=== PATIENT | male | born 1960 | race Caucasian/White ===

== ENCOUNTER 2017-09-01 20:46 | Inpatient (IN) ==
[2017-09-01] MEDS ORDERED: *HR* Ticagrelor 90 MG TABLET PO ONE (21:02)
[2017-09-01] MEDS ORDERED: *HR* Heparin 5,000 UNIT/ML VIAL IVP ONE (21:02)
[2017-09-01] MEDS ORDERED: Aspirin 81 MG TAB.CHEW PO ONE (21:02)
--- NOTE | 2017-09-01 21:11 | Emergency Department Note ---
Disposition Clinical Impression: ST elevation myocardial infarction (STEMI) Disposition: Admitted As Inpatient Condition: Serious Time of Disposition: 21:41 Chest Pain HPI - General Chief Complaint: ED Chest Pain Stated Complaint: Chest Pain Time Seen by Provider: 09/01/17 20:58 Source: patient Mode of arrival: ambulatory Limitations: no limitations Vital Signs Reviewed: Yes Nursing Notes Reviewed: Yes - History of Present Illness HPI Narrative: Patient presents to the ED with the chief complaint of chest pain. Onset was acutely at 7 PM while at rest. Has a history of previous IA 7 years ago requiring stent placement. He is only on aspirin daily. States the pain is a heavy pressure in his chest, nonradiating. Associated with diaphoresis and nausea. Denies any fever, headache, shortness of breath, abdominal pain. Having no melena, hematochezia, hemoptysis, or hematuria. Severity scale (1-10): 7 - Related Data Allergies Allergy/AdvReac Type Severity Reaction Status Date / Time No Known Allergies Allergy Verified 09/01/17 20:55 All systems ED: reviewed and negative except as stated. Constitutional: Denies: fever Cardiovascular: Reports: chest pain. Denies: syncope Respiratory: Denies: dyspnea Gastrointestinal: Reports: nausea Chest Pain PMH - Past Medical History Medical history: Reports: hypertension, myocardial infarction Psychiatric history: Reports: no psych history - Social History Smoking Status: Current every day smoker Alcohol use: Reports: none Drug use: Reports: none Physical Exam - General Limitations: no limitations General appearance: alert, other (Diaphoretic, appears uncomfortable) - Eye Eye exam: Present: normal appearance, PERRL, EOMI. Absent: scleral icterus, conjunctival injection - ENT ENT exam: mucous membranes dry - Chest Chest inspection: Present: normal inspection, symmetric chest wall rise - Respiratory Respiratory exam: Present: normal lung sounds bilaterally - Cardiovascular Cardiovascular exam: Present: normal rhythm, tachycardia, normal heart sounds. Absent: regular rate - Abdominal Exam Abdominal exam: Present: soft, Non-Tender. Absent: tenderness, distention, guarding, rebound, rigidity - Extremities Exam Extremities exam: Present: normal inspection, full ROM. Absent: tenderness, pedal edema - Expanded Lower Extremity Exam Hip/Pelvis exam: Present: pelvis stable - Neurological Exam Neurological exam: Present: alert, oriented X3 - Psychiatric Psychiatric exam: Present: normal affect, normal mood - Skin Skin exam: Present: warm, intact, diaphoresis Course - Reevaluation(s) Reevaluation #1: STEMI alert called. Dr. Villegas notified and on his way in. Reevaluation #2: Patient still hypertensive and having pain. We will give nitroglycerin Vital Signs Temperature 97.5 F L 09/01/17 20:51 Pulse Rate 114 09/01/17 20:51 Respiratory Rate 18 09/01/17 20:51 Blood Pressure 182/124 09/01/17 20:51 O2 Sat by Pulse Oximetry 99 09/01/17 20:51 Temperature 97.5 F L 09/01/17 20:51 Pulse Rate 102 09/01/17 21:34 Respiratory Rate 20 09/01/17 21:40 Blood Pressure 175/129 09/01/17 21:40 O2 Sat by Pulse Oximetry 96 09/01/17 21:34 Oxygen Delivery Oxygen Delivery Room Air Chest Pain - Medical Records Medical records reviewed: Yes I reviewed the patient's medical records. - Lab Data Lab results reviewed: Yes I reviewed the patient's lab results. Result diagrams: 09/01/17 21:00 09/01/17 21:00 Lab Results 09/01/17 09/01/17 09/01/17 Range/Units 21:00 21:00 21:00 WBC 14.8 H (4.3-11.1) K/mcL RBC 5.11 (4.19-5.50) M/mcL Hgb 16.4 (12.9-16.9) g/dL Hct 48.3 (37.5-50.1) % MCV 94.5 (83.0-100.0) fL MCH 32.1 (28.0-33.3) pg MCHC 34.0 (31.6-35.5) g/dL RDW 12.1 (11.5-14.5) % Plt Count 324 (140-400) K/mcL MPV 9.4 (9.4-12.4) fL Immature Gran % 0.4 (0-4) % Seg Neutrophils % 75.4 % Lymphocytes % 16.3 % Monocytes % 6.8 % Eosinophils % 0.8 % Basophils % 0.3 % Neutrophils # 11.2 H (1.6-8.9) K/mcL Lymphocytes # 2.4 (0.6-4.6) K/mcL Monocytes # 1.0 (0.0-1.3) K/mcL Eosinophils # 0.1 (0.0-0.6) K/mcL Basophils # 0.0 (0.0-0.2) K/mcL PT (9.4-12.1) Seconds INR APTT (26.0-36.0) Seconds Sodium 133 L (136-145) mEq/L Potassium 4.0 (3.5-5.1) mEq/L Chloride 98 (98-107) mEq/L Carbon Dioxide 28 (23-29) mEq/L BUN 14 (6-20) mg/dL Creatinine 1.32 H (0.70-1.30) mg/dL Est GFR ( Amer) > 60 (> 60) Est GFR (Non-Af Amer) 56 L (> 60) BUN/Creatinine Ratio 11 (6-26) Glucose 429 H (70-105) mg/dL Calculated Osmolality 295 (280-300) Calcium 9.5 (8.6-10.3) mg/dL Magnesium 1.9 (1.6-2.6) mg/dL Troponin I 0.12 H* (< 0.04) ng/mL 09/01/17 Range/Units 21:00 WBC (4.3-11.1) K/mcL RBC (4.19-5.50) M/mcL Hgb (12.9-16.9) g/dL Hct (37.5-50.1) % MCV (83.0-100.0) fL MCH (28.0-33.3) pg MCHC (31.6-35.5) g/dL RDW (11.5-14.5) % Plt Count (140-400) K/mcL MPV (9.4-12.4) fL Immature Gran % (0-4) % Seg Neutrophils % % Lymphocytes % % Monocytes % % Eosinophils % % Basophils % % Neutrophils # (1.6-8.9) K/mcL Lymphocytes # (0.6-4.6) K/mcL Monocytes # (0.0-1.3) K/mcL Eosinophils # (0.0-0.6) K/mcL Basophils # (0.0-0.2) K/mcL PT 9.3 L (9.4-12.1) Seconds INR 0.9 APTT 37.7 H (26.0-36.0) Seconds Sodium (136-145) mEq/L Potassium (3.5-5.1) mEq/L Chloride (98-107) mEq/L Carbon Dioxide (23-29) mEq/L BUN (6-20) mg/dL Creatinine (0.70-1.30) mg/dL Est GFR ( Amer) (> 60) Est GFR (Non-Af Amer) (> 60) BUN/Creatinine Ratio (6-26) Glucose (70-105) mg/dL Calculated Osmolality (280-300) Calcium (8.6-10.3) mg/dL Magnesium (1.6-2.6) mg/dL Troponin I (< 0.04) ng/mL - Radiology Data Radiology results reviewed: Yes I reviewed the patient's radiology results. - EKG Data EKG attestation: Yes I reviewed and interpreted this EKG. EKG results narrative: Sinus tach, rate 106, ID interval 177, QRS 77, QTC 372, anterior septal IA with ST elevation in V1 through V4, but most prominent in V2, V3 and V4. This is similar to morphology (but more pronounced) from previous EKG in 2009. However , this is when he had his last heart attack. Heart Score - Score History: Highly Suspicious EKG: Significant ST-Depression Age: 45-65 Risk Factors: Equal/Greater than 3 risk factor or history of atherosclerotic disease Troponin: Greater than 3x normal limit HEART Score Total: 9 Critical Care Time Critical Care Time: Yes Total Critical Care Time: 30 Attestation: Critical care performed: Time is exclusive of separately billable procedures. Time includes: direct patient care, patient reassessment, coordination of patient care, interpretation of data (laboratory data, radiology data, and respiratory data), review of patient's medical records, medical consultation and documentation of patient care. Procedures included in critical care time: Procedures excluded from critical care time: Attestation Statement - Attestation Attestation: I examined this patient and my medical decision-making was reviewed with the Resident Physician. I agree with the documented findings, disposition and treatment plan as described except to the extent set forth below. Anterior STEMI. Mild tachy, hypertensive, profusely diaphoretic. No sx of abnormal bleeding, CXR shows normal mediastinum. Sent to custodial laborer with cardio.
[2017-09-01 21:14] LABS: Basophils % 0.3 %; Eosinophils # 0.1 K/mcL (0.0-0.6); Eosinophils % 0.8 %; Hematocrit 48.3 % (37.5-50.1); Hemoglobin 16.4 g/dL (12.9-16.9); Immature Granulocytes % 0.4 % (0-4); Lymphocytes # 2.4 K/mcL (0.6-4.6); Lymphocytes % 16.3 %; Mean Corpuscular Hemoglobin 32.1 pg (28.0-33.3); Mean Corpuscular Volume 94.5 fL (83.0-100.0); Mean Platelet Volume 9.4 fL (9.4-12.4); Monocytes % 6.8 %; Neutrophils # 11.2 K/mcL (1.6-8.9); Platelet Count 324 K/mcL (140-400); Red Blood Count 5.11 M/mcL (4.19-5.50); Red Cell Distribution Width 12.1 % (11.5-14.5); Segmented Neutrophils % 75.4 %
[2017-09-01 21:17] LABS: INR 0.9; Prothrombin Time 9.3 Seconds (9.4-12.1)
[2017-09-01 21:20] LABS: Activated Partial Thrombo Time 37.7 Seconds (26.0-36.0)
[2017-09-01] MEDS ORDERED: *HR* Heparin 10,000 UNIT/10 ML VIAL ONE (21:21)
[2017-09-01] MEDS ORDERED: Verapamil 5 MG/2 ML VIAL ONE (21:21)
[2017-09-01] MEDS ORDERED: Nitroglycerin 1,000 MCG/10 ML VIAL IV ONE (21:21)
[2017-09-01] MEDS ORDERED: 0.9 % Sodium Chloride 1,000 ML ONE ×2 (21:21→21:32)
[2017-09-01] MEDS ORDERED: Heparin 1,000 UNITS/500 mL NS 500 ML ONE (21:22)
[2017-09-01 21:24] LABS: BUN/Creatinine Ratio 11 (6-26); Blood Urea Nitrogen 14 mg/dL (6-20); Calcium 9.5 mg/dL (8.6-10.3); Carbon Dioxide 28 mEq/L (23-29); Chloride 98 mEq/L (98-107); Glucose 429 mg/dL (70-105); Magnesium 1.9 mg/dL (1.6-2.6); Osmolality,Calculated 295 (280-300); Sodium 133 mEq/L (136-145); eGFR For African Americans > 60 (> 60); eGFR For Non-African Americans 56 (> 60)
[2017-09-01] MEDS ORDERED: Nitroglycerin 0.4 MG TAB.SUBL SL ONE (21:38)
[2017-09-01] MEDS: Nitroglycerin 0.4 MG TAB.SUBL SL PRN ×2 (21:40→23:01)
--- NOTE | 2017-09-01 21:43 | Pre-Sedation Evaluation ---
Pre-sedation evaluation - Pre-sedation checklist Date of procedure: 09/01/17 Procedure: [facility] Recent Vitals: Last Vital Signs Temp 97.5 F L 09/01/17 20:51 Pulse 102 09/01/17 21:34 Resp 20 09/01/17 21:40 BP 175/129 09/01/17 21:40 Pulse Ox 96 09/01/17 21:34 H&P (including ROS) documented in medical record: Yes Previous reaction to sedatives/anesthetics: No Dietary Status: unknown Airway Assessment: Patient can open mouth completely, TMJ function normal ASA Classification *see protocol: CLASS II-Mild systemic disease, E-EMERGENCY- Add to any of the above to indicate emergent Plan of Care: Pt appropriate candidate for procedure/moderate/conscious sedation , Risks/benefits of procedure/sedation discussed w/ patient/family, If not NPO; Risk of intake outweiged by necessity to perform procedure
[2017-09-01] MEDS ORDERED: *HR* Morphine 2 MG/ML SYRINGE IVP PRN (21:44)
[2017-09-01] MEDS ORDERED: Ondansetron 4 MG/2 ML VIAL IVP PRN (21:44)
--- NOTE | 2017-09-01 21:44 | Cardiology History & Physical ---
Date of Encounter: 09/02/17 Time of Encounter: 22:00 Assessment and Plan (1) ST elevation myocardial infarction (STEMI) Current Visit: Yes Status: Acute Emergent LHC for life threatening illness - A/R/B discussed with patient. EF assessment via echo/ventriculogram. Aspirin, brilinta, heparin given. Total critical care time: 2 hours The assessment and plan as outlined above was discussed with the patient and/or family members who expressed understanding and agreement. All questions were answered. Qualifiers: Involved coronary artery: LAD coronary artery Qualified Code(s): I21.02 - ST elevation (STEMI) myocardial infarction involving left anterior descending coronary artery (2) Nicotine dependence Current Visit: Yes Status: Acute nicotine patch The assessment and plan as outlined above was discussed with the patient and/or family members who expressed understanding and agreement. All questions were answered. Qualifiers: Nicotine product type: cigarettes Substance use status: uncomplicated Qualified Code(s): F17.210 - Nicotine dependence, cigarettes, uncomplicated (3) Acute kidney injury Current Visit: Yes Status: Acute NS IV. The assessment and plan as outlined above was discussed with the patient and/or family members who expressed understanding and agreement. All questions were answered. History of Present Illness Chief complaint: chest pain HPI: Mr. Mosley is a 57 year old male with history of CAD sp PCI RCA remotely presents with sudden onset severe chest discomfort around 7pm described as pressure without radiation associated with dyspnea. It had no improvement with aspirin/ NTG in EMS. Upon arrival to ED, patient found to have anterior acute changes current of injury and STEMI team activated. Past Med Surg Social Fam HX - Past Medical History Medical history: hypertension, myocardial infarction Psychiatric history: no psych history - Social History Smoking Status: Current every day smoker Alcohol use: none Drug use: none Medications and Allergies 3 Allergy/AdvReac Type Severity Reaction Status Date / Time No Known Allergies Allergy Verified 09/01/17 20:55 All Systems Review: A 10-system review of systems was performed and is negative for pertinent findings except as documented above in the HPI. - Constitutional Constitutional: no chills, no fever(s) - EENT Eyes: no blurred vision, no loss of vision Nose, mouth and throat: no dysphagia, no epistaxis - Cardiovascular Cardiovascular: chest pain at rest, chest pain with exertion - Respiratory Respiratory: no hemoptysis, no wheezing - Gastrointestinal Gastrointestinal: no hematemesis, no hematochezia - Genitourinary Genitourinary: no hematuria, no nocturia - Musculoskeletal Musculoskeletal: no abnormal gait, no myalgias - Integumentary Integumentary: no rash, no unusual bruising - Neurological Neurological: no memory loss, no syncope - Psychiatric Psychiatric: no hallucinations, no panic attacks - Hematological/Lymphatic Hematologic/Lymphatic: no easy bleeding, no easy bruising Physical Examination Vital Signs, Last 4 Hours Pulse Resp BP Pulse Ox 09/01/17 21:40 20 175/129 09/01/17 21:34 102 20 173/129 96 09/01/17 21:26 98 20 172/122 97 09/01/17 21:22 98 20 173/124 97 General: Conversant, Other (distressed) HEENT: Atraumatic, Normocephaly Neck: No JVD Cardiac: Reg Rate and Rhythm Lungs: Normal Breath Sounds Neuro: Alert and responsive Abdomen: Soft Skin: No rashes noted on visualized skin Musculoskeletal: No Chest Wall Tenderness Extremities: No Edema Results 09/02/17 04:10 09/01/17 21:00 - EKG Interpretation EKG results cardiology: personally reviewed, sinus rhythm (anterior current of injury)
[2017-09-01] MEDS ORDERED: *HR* Midazolam HCl 2 MG/2 ML VIAL ONE (21:49)
[2017-09-01] MEDS ORDERED: *HR* FentaNYL (PF) 100 MCG/2 ML VIAL ONE (21:50)
[2017-09-01] MEDS ORDERED: Tirofiban 5 MG/100ML 5 MG/100 ML BAG IV ONE (22:01)
[2017-09-01] MEDS ORDERED: *HR* HYDROcodone/Acet 5/325 mg TABLET PO PRN (22:27)
[2017-09-01] MEDS ORDERED: Acetaminophen 325 MG TABLET PO PRN (22:27)
[2017-09-01] MEDS ORDERED: Tirofiban 12.5 MG/250ML 12.5 MG/250 ML BAG IVC SCH (22:30)
--- NOTE | 2017-09-01 22:41 | Invasive Diagnostic Lab Proc ---
Name: Vin Mosley Date of Study: 09/01/2017 Date: 1960 Ht: 76.0in Medical Record#: [id number] Age: 57 Wt: 250.00lb Gender: Male BSA: 2.44 Order #: [id number] BMI: 30.44 Physicians Procedure Physician: Lobito Villegas MD, [facility] Referring MD: Evelina Burnett, HOSPITAL INTERN Referring MD: Staff Name Position Time In Angel Sanchez RN Monitor 09:48 PM Lowell Boyd RN Concert Pianist 09:48 PM Maddy De Leon RT (R) Scrub 09:48 PM Indications Indication STEMI Procedures Performed Procedure PRQ CARD REVASC MN 1 VSL L HRT ARTERY/VENTRICLE ANGIO PRQ CARD KOBE STENT W/ANGIO 1 VSL Pre-Procedure Checklist Informed consent is complete signed and on chart. H&P is on chart. ID band is on and ID verified with patient. Pt not NPO for procedure and MD aware. The procedure was described for the patient and questions were answered. Blood Pressure: 173/129 ECG is on chart. Rhythm: NSR Plan of Care Patient will tolerate the procedure without complications. Adequate level of comfort will be maintained. Hemodynamics will remain stable Patient will recover from procedure without complications. Respiratory function will be maintained. Cardiac rhythm will remain stable. Patient temperature will be maintained. Patient and/or family have verbalized understanding of the procedure. Patient Education Intravenous Access Time IV Size Location DC'd Fluid/Drip Rate Units RN 09:40 PM 18g 1 1/4" Patent On Arrival Rt Antecubital Lowell Boyd RN 09:40 PM 18g 1 1/4" Patent On Arrival Lt Antecubital 0.9NaCl 25 ml/hr Lowell Boyd RN Allergies No Known Allergies Vital Signs Time BP (mmHg) HR (bpm) O2 Sat. RR (bpm) LOC 09:39 PM 173 / 129 98 97 % 20 5 = Fully awake and oriented or at pre-proc level 09:50 PM / % 5 = Fully awake and oriented or at pre-proc level 09:50 PM / % 4 = Oriented but drowsy 10:05 PM / % 4 = Oriented but drowsy 09:47 PM 181 / 127 102 96 % 19 09:52 PM 177 / 128 97 95 % 11 09:57 PM 169 / 122 100 84 % 17 10:02 PM 159 / 108 100 97 % 25 10:07 PM 167 / 108 93 97 % 27 10:12 PM 139 / 95 103 97 % 16 10:16 PM 153 / 99 99 96 % 25 10:22 PM 154 / 104 99 94 % 28 Procedural Medications Time Medication Dose Units Method Given By 09:49 PM Oxygen 3 L/min nasal cannula Lowell Boyd RN 09:50 PM Versed 2 mg Intravenous Lowell Boyd RN 09:50 PM Fentanyl 50 mcg Intravenous Lowell Boyd RN 09:50 PM Lidocaine 2% 0.5 ml Subcutaneous Lobito Villegas MD, FACC 09:54 PM Hydralazine 20 mg Intravenous Lowell Boyd RN 09:57 PM Oxygen 8 L/min Oxy Mask Lowell Boyd RN 10:04 PM Aggrastat Bolus: 58 ml Intravenous Lowell Boyd RN 10:06 PM Aggrastat 5mg/100ml 21 ml/hr Intravenous Lowell Boyd RN ASA Classification: CLASS II- Mild systemic disease (i.e. well-controlled diabetes, hypertension, asthma, cigarette smoking) Emergent Procedure: ASA score is assumed Krystal Score Preprocedure Postprocedure Activity 2- Moves 4 extremities sustained head lift Activity Circulation 2- SBP +/= 20 points of pre-anesthetic level Circulation Consciousness 2- Awake and alert oriented x 3 Consciousness O2 Saturation 2- Able to maintain O2 satruation of 92% on room air O2 Saturation Respiratory 2- Able to deep breathe and cough well Respiratory Total Score 10 Total Score Contrast Agent: Isovue Diagnostic Contrast: 160 ml Total Contrast: 160 ml Fluoro Dose: 734 mGy Procedure Log Time Note Enter By 09:15 PM chest pain 'a little bit better ' per patient csmith 09:42 PM Pt arrived to laboratory technician 2 at 21:42 8/10 chest pain at this time csmith 09:46 PM CathStat 09:46 PM Vitals capture started with the following parameters, Patient=Adult, Interval=5 min, Initial Vsfflell=622 mmHg, Deflation Rate=5 mmHg, Cuff placed on Right Leg 09:47 PM KR=905 bpm, RZWE=430/127 mmhg, SpO2=96.0 %, Resp=19 B/min 09:48 PM Angel Sanchez RN Position: Monitor Time in: 21:48 csmith 09:48 PM Lowell Boyd RN Position: Concert Pianist Time in: 21:48 csmith 09:48 PM Maddy De Leon RT (R) Position: Scrub Time in: 21:48 csmith 09:48 PM Patient charges- Angio tray pack, Navilyst 3mm J, Pulse Oximetry and ACIST tubing and transducer csmith 09:49 PM Hair removed from procedure site in procedure lab using clippers. Right wrist and right groin prepped with Chloraprep by Angel Sanchez RN, safety strap applied then patient was draped. Skin intact. csmith :49 PM Physician arrived :49 csmith :49 PM Meet and greet completed csmith :49 PM Sign in performed according to hospital policy. csmith 09:49 PM Procedure start :49 csmith :49 PM Time: 21:49 Oxygen on at 3 L/min per nasal cannula by Lowell Boyd RN csmith 09:49 PM Case Start 09:50 PM Pressure channel 1 zeroed. 09:50 PM Time: 21:50 Versed 2 mg Intravenous Given by Lowell Boyd RN [facility] 09:50 PM Time: 21:50 Fentanyl 50 mcg Intravenous Given by Lowell Boyd RN [facility] 09:50 PM Time: 21:50 Patient comfortable and pain free: no csmith 09:50 PM Time: 21:50LOC: 5 = Fully awake and oriented or at pre-proc level csmith 09:50 PM Time out performed according to hospital policy csmith 09:50 PM Time: 21:50 0.5 ml Lidocaine 2% to right radial Subcutaneous Given by Lobito Villegas MD, [facility] csmith 09:51 PM Pressure channel 1 zero failed. 09:52 PM Pressure channel 1 zeroed. 09:52 PM HR=97 bpm, HPBZ=304/128 mmhg, SpO2=95.0 %, Resp=11 B/min 09:52 PM Access obtained by percutaneous puncture. 5/6Fr 10cm Terumo Glidesheath sheath placed in right Radial artery. [id number] csmith 09:54 PM 0.035 260cm Navilyst 3mmJ wire [id number] [facility] 09:54 PM 6Fr CLS 3.0 Runway guide catheter was used to cannulate the PCI vessel successfully. reused? No csmith :54 PM Time: 21:54 Hydralazine 20 mg Intravenous Given by Lowell Boyd RN csmith 09:56 PM wire removed csmith 09:56 PM .014 [place] 180cm guide wire across target lesion- successful. reused? No csmith 09:57 PM AE=512 bpm, FQFM=956/122 mmhg, SpO2=84.0 %, Resp=17 B/min, Comment=ST 09:57 PM Time: 21:57 Oxygen on at 8 L/min per Oxy Mask by Lowell Boyd RN csmith 09:58 PM PCI lesion in Mid LAD. Pre Stenosis: 99 Pre DAVIDA Flow: 2: Partial Flow/Perfusion (> 1 but < 3) csmith 09:59 PM 3.0mm x 16mm Synergy drug-eluting stent across target lesion- successful Lot #[id number] csmith 10:00 PM Patient moving arms sporadically csmith 10:00 PM Stent deployed @ 16 meenu for 23 seconds csmith 10:01 PM Recorded Pressure: Ao, HR=95, Condition=Condition 1 (Aorta) Ao 139/100/120 10:02 PM HJ=343 bpm, PXZX=307/108 mmhg, SpO2=97.0 %, Resp=25 B/min, Comment=st 10:04 PM Stent delivery system removed intact. csmith 10:04 PM Catheter selectively placed in left ventricle csmith 10:04 PM Pressure channel 1 zeroed. 10:04 PM Recorded Pressure: LV, HR=99, Condition=Condition 1 (Left Ventricle) LV 173/20/37 10:04 PM Bolus angiogram of left Ventricle complete: 10 ml/sec for a total of 20 mls csmith 10:05 PM Catheter removed csmith 10:05 PM Recorded Pressure: LV, Ao, HR=98, Condition=Condition 1 (Left Ventricle) LV 168/22/36, (Aorta) Ao 164/108/134 10:05 PM Time: 21:50LOC: 4 = Oriented but drowsy csmith 10:05 PM Time: 21:50 Patient comfortable and pain free: Yes csmith 10:06 PM 5Fr TIG catheter inserted over the wire DNC csmith 10:06 PM Time: 22:04 Aggrastat Bolus: 58 ml Intravenous Given by Lowell Boyd RN Seth pump csmith 10:06 PM Time: 22:06 Aggrastat 5mg/100ml 21 ml/hr Intravenous Given by Lowell Boyd RN Seth pump csmith 10:07 PM Recorded Pressure: Ao, HR=96, Condition=Condition 1 (Aorta) Ao 146/114/129 10:07 PM HR=93 bpm, JENV=249/108 mmhg, SpO2=97 %, Resp=27 B/min 10:07 PM RCA angiography performed in multiple views. csmith 10:07 PM Coronary Dominance: right csmith 10:08 PM no pain change at this time csmith 10:09 PM Catheter removed csmith 10:09 PM 6Fr Im Runway guide catheter was used to cannulate the PCI vessel successfully. reused? No csmith 10:10 PM marvel wire reinserted csmith 10:11 PM 3.5mm x 12mm Synergy drug-eluting stent across target lesion- successful Lot #[id number] csmith 10:12 PM Lesion found in Distal RCA. Pre Stenosis: 99 Pre DAVIDA Flow: 2: Partial Flow/Perfusion (> 1 but < 3) csmith 10:12 PM UT=782 bpm, MXJS=128/95 mmhg, SpO2=97.0 %, Resp=16 B/min, Comment=st 10:12 PM Stent deployed @ 14 meenu for 18 seconds csmith 10:13 PM Lesion found in Mid Circumflex. Pre Stenosis: 40 Pre DAVIDA Flow: 3: Complete and Brisk Flow/Perfusion csmith 10:14 PM Stent balloon reinflated @ 16 meenu for 25 seconds csmith 10:14 PM Lesion found in Mid RCA. Pre Stenosis: 65 Pre DAVIDA Flow: 3: Complete and Brisk Flow/Perfusion csmith 10:15 PM guide catheter and wire removed csmith 10:15 PM TIG reinserted csmith 10:16 PM HR=99 bpm, IKXR=917/99 mmhg, SpO2=96.0 %, Resp=25 B/min 10:17 PM LCA angiography performed in multiple views. csmith 10:19 PM catheter removed csmith 10:21 PM Time: 22:05LOC: 4 = Oriented but drowsy csmith 10:22 PM HR=99 bpm, GQNV=940/104 mmhg, SpO2=94.0 %, Resp=28 B/min 10:22 PM Procedure completed at 22:22 csmith 10:22 PM Sign out completed: Radiation Dose 734 mGy Fluoro Time: 6.2 Isovue 370 - 200ml contrast 160 ml given by Lobito Villegas MD, FACC. Complications: NoneCardiac Rehab Consult needed: YesConfirmed administered medications: Yes csmith 10:23 PM Isovue 370 - 200ml,1 Bottle(s) used. csmith 10:23 PM Arterial sheath pulled, Vasc Band closure device used and was Successful S/N. csmith 10:23 PM 12 ml air in Vasc Band. csmith 10:23 PM Estimated Blood Loss: less than 20cc csmith 10:23 PM Post ECG NSR csmith 10:23 PM Post Blood Pressure 154/104 csmith 10:23 PM 22:23 Post Pulses Right radial 1+ csmith 10:23 PM Information taught Cardiac Cath, PCI, and Vasc Band csmith 10:23 PM Education needs Responsibilities of Patient in Care csmith 10:23 PM Education Methods Verbal csmith 10:23 PM Learning barriers :Sedated csmith 10:23 PM Education evaluation Unable to retain information. Needs further instruction csmith 10:24 PM Site status No bleeding/hematoma - Rt Wrist as reported by Maddy De Leon RT (R) at 22:23 csmith 10:24 PM Plavix, Effient or Brilinta given No - given in ED csmith 10:24 PM Family placed in consult room. [facility] Complications Complication None Hemodynamics Pressures Site Systolic/A Wave Diastolic/V Wave Mean AO 139 100 120 LV 173 20 37 LV 168 22 36 AO 164 108 134 AO 146 114 129 Post Procedure Information Blood Pressure: 154/104 mmHg Rhythm: NSR Post procedural instructions were given Closure Device Time Device Success/Fail Mechanical Compression Site Checks Time Location Status Staff Sheath In? Note 10:23 PM Rt Wrist No bleeding/hematoma Maddy De Leon RT (R) Pulses Time Site Pre-Procedure Post-Procedure Note 10:23:00 PM Right radial 1+ Updated by Angel Sanchez RN on 09/01/2017 10:34:00 PM electronically signed on 09/01/2017 10:34:59 PM with status of Final
[2017-09-01] MEDS: 0.9 % Sodium Chloride 1,000 ML IVC SCH (23:01)
[2017-09-02] MEDS ORDERED: *HR* Dextrose 50 % in Water (Syg) 50 ML SYRINGE IVP PRN ×2 (00:44→12:33)
[2017-09-02] MEDS ORDERED: Dextrose Gel 15 GM PO PRN ×4 (00:44→12:33)
[2017-09-02] MEDS ORDERED: D5% in Water 1,000 ML IVC PRN ×2 (00:44→12:33)
[2017-09-02] MEDS ORDERED: Insulin LISPRO 300 UNITS/3 ML VIAL SQ SCH ×2 (00:45→21:00)
[2017-09-02 04:42] LABS: Basophils % 0.2 %; Eosinophils % 0.1 %; Hematocrit 47.5 % (37.5-50.1); Hemoglobin 16.2 g/dL (12.9-16.9); Immature Granulocytes % 0.7 % (0-4); Lymphocytes # 1.9 K/mcL (0.6-4.6); Mean Corpuscular HGB Conc 34.1 g/dL (31.6-35.5); Mean Corpuscular Hemoglobin 31.5 pg (28.0-33.3); Mean Corpuscular Volume 92.2 fL (83.0-100.0); Mean Platelet Volume 9.3 fL (9.4-12.4); Monocytes # 1.1 K/mcL (0.0-1.3); Monocytes % 8.5 %; Neutrophils # 10.2 K/mcL (1.6-8.9); Platelet Count 309 K/mcL (140-400); Red Blood Count 5.15 M/mcL (4.19-5.50); Red Cell Distribution Width 12.3 % (11.5-14.5); Segmented Neutrophils % 76.5 %
[2017-09-02 04:53] LABS: Hemoglobin A1C 10.5 %
[2017-09-02] MEDS ORDERED: *HR* Enoxaparin 40 MG/0.4 ML SYRINGE SQ SCH (06:00)
[2017-09-02] MEDS: Insulin LISPRO 300 UNITS/3 ML VIAL SQ SCH ×3 (07:39→16:26)
[2017-09-02] MEDS: 0.9 % Sodium Chloride 1,000 ML IVC SCH ×3 (07:40→19:30)
[2017-09-02] MEDS ORDERED: Aspirin 81 MG TAB.CHEW PO SCH (09:00)
[2017-09-02] MEDS ORDERED: *HR* Ticagrelor 90 MG TABLET PO SCH (09:00)
[2017-09-02] MEDS ORDERED: Nicotine 21 MG PATCH.TD24 TD SCH (09:00)
[2017-09-02 09:10] LABS: BUN/Creatinine Ratio 14 (6-26); Blood Urea Nitrogen 12 mg/dL (6-20); Calcium 9.3 mg/dL (8.6-10.3); Carbon Dioxide 19 mEq/L (23-29); Chloride 106 mEq/L (98-107); Glucose 214 mg/dL (70-105); Osmolality,Calculated 288 (280-300); Potassium 3.8 mEq/L (3.5-5.1); Sodium 136 mEq/L (136-145); eGFR For African Americans > 60 (> 60); eGFR For Non-African Americans > 60 (> 60)
--- NOTE | 2017-09-02 09:47 | Cardiology Progress Note ---
Date of Encounter: 09/02/17 Time of Encounter: 09:46 Assessment and Plan (1) ST elevation myocardial infarction (STEMI) Current Visit: Yes Status: Acute S/P emergent LHC with KOBE to mid LAD and distal RCA. DAPT (ASA and Brilinta) uninterrupted x 1 year. Pt verbalizes understanding. Continue BB and statin. Right radial access site healing well. No bleeding, hematoma or ecchymosis noted. Echo to evaluate structure and function. Plan to step down to regular floor later today. Qualifiers: Involved coronary artery: LAD coronary artery Qualified Code(s): I21.02 - ST elevation (STEMI) myocardial infarction involving left anterior descending coronary artery (2) CAD (coronary artery disease) Current Visit: Yes Status: Acute ASA, Brilinta, BB, Statin. Qualifiers: Coronary Disease-Associated Artery/Lesion type: [place] artery [place] vs. transplanted heart: [place] heart Associated angina: angina presence unspecified Qualified Code(s): I25.10 - Atherosclerotic heart disease of [place] coronary artery without angina pectoris (3) Nicotine dependence Current Visit: Yes Status: Acute Smoking cessation counseling given. Nicotine patch while inpt. Qualifiers: Nicotine product type: cigarettes Substance use status: uncomplicated Qualified Code(s): F17.210 - Nicotine dependence, cigarettes, uncomplicated (4) Essential hypertension Current Visit: Yes Status: Acute BP not well controlled. Increase BB. Will continue to adjust antihypertensives as necessary. Discussion w patient/family: The assessment and plan as outlined above was discussed with the patient and/or family members who expressed understanding and agreement. All questions were answered. Thank you for involving us in the care of your patient. Please call with any questions. I will discuss all the above with Dr. Garcia and make changes as necessary. Subjective Principal diagnosis: STEMI Interval history: S/P STEMI last night, emergent LHC with KOBE to mid LAD and distal RCA--final report pending. Denies chest pain or dyspnea this AM. Only complaint is nasal drainage. Objective Vital Signs, Last 4 Hours Temp Pulse Resp BP Pulse Ox 09/02/17 09:00 84 18 145/106 95 09/02/17 08:33 97.8 F 09/02/17 08:00 85 18 136/99 98 09/02/17 07:30 80 09/02/17 07:00 80 18 142/106 98 09/02/17 06:00 91 18 149/114 97 Vital Signs Temp Pulse Resp BP Pulse Ox 09/02/17 09:00 84 18 145/106 95 09/02/17 08:33 97.8 F 09/02/17 08:00 85 18 136/99 98 09/02/17 07:30 80 09/02/17 07:00 80 18 142/106 98 09/02/17 06:00 91 18 149/114 97 09/02/17 05:00 90 18 147/100 97 09/02/17 04:53 97.8 F 09/02/17 04:00 89 18 154/118 97 09/02/17 03:00 107 20 170/104 99 09/02/17 02:00 94 20 150/116 97 09/02/17 01:00 103 22 163/111 98 09/02/17 00:45 81 18 151/111 98 09/02/17 00:30 83 20 149/116 98 09/02/17 00:15 89 20 158/108 98 09/02/17 00:00 89 20 154/102 98 09/01/17 23:45 81 18 141/114 98 09/01/17 23:31 95 22 148/93 97 09/01/17 23:20 99 09/01/17 23:15 99 22 140/91 96 09/01/17 23:02 97 F L 101 22 141/93 97 09/01/17 22:38 97 F L 107 12 146/93 94 09/01/17 21:40 20 175/129 09/01/17 21:34 102 20 173/129 96 09/01/17 21:26 98 20 172/122 97 09/01/17 21:22 98 20 173/124 97 09/01/17 21:17 99 20 177/127 97 09/01/17 21:09 176/124 09/01/17 21:03 104 20 97 09/01/17 20:51 97.5 F L 114 18 182/124 99 Intake and Output 09/01/17 09/02/17 09/02/17 23:59 07:59 15:59 Intake Total 1080 / 1080 400 / 400 Output Total 500 / 500 1475 / 1475 400 / 400 Balance -500 / -500 -395 / -395 0 / 0 Intake: IV Fluids 1080 / 1080 0.9 % Sodium Chloride 1,000 ML 1000 / 1000 @ 100 mls/hr IVC .Q10H LETI Rx#: [id number] Aggrastat 12.5 MG/250 ML 12.5 80 / 80 mg In 250 ml @ 0.15 MCG/KG/MIN 20.412 mls/hr IVC .[id number] LETI Rx#:[id number] Oral 400 / 400 Output: Urine 500 / 500 1475 / 1475 400 / 400 Other: Weight 113.398 kg Blood Glucose* 284 259 General: Conversant, No Apparent Distress HEENT: Atraumatic, Normocephaly, Mucus Membranes Moist Neck: No JVD, Normal carotid pulses Cardiac: Reg Rate and Rhythm, Normal S1 and S2, No Murmur Lungs: Normal Breath Sounds, No Wheeze, Rales, Rhonchi Neuro: Alert and responsive, No focal deficits noted Abdomen: Soft, Non-Tender Skin: Other (right radial access site healing well. No bleeding, hematoma or ecchymosis noted.) Musculoskeletal: No Chest Wall Tenderness Extremities: No Clubbing, No Cyanosis, No Edema, Normal Pulses Results 09/02/17 04:10 09/02/17 04:10 Lab Results 09/02/17 09/02/17 04:10 04:10 WBC 13.4 H Hgb 16.2 Hct 47.5 Plt Count 309 Sodium 136 Potassium 3.8 Chloride 106 Carbon Dioxide 19 L BUN 12 Creatinine 0.88 Glucose 214 H Calcium 9.3 Short CBC 09/02/17 09/01/17 Range/Units 04:10 21:00 WBC 13.4 H 14.8 H (4.3-11.1) K/mcL Hgb 16.2 16.4 (12.9-16.9) g/dL Hct 47.5 48.3 (37.5-50.1) % Plt Count 309 324 (140-400) K/mcL Neutrophils # 10.2 H 11.2 H (1.6-8.9) K/mcL BMP 09/02/17 09/01/17 Range/Units 04:10 21:00 Sodium 136 133 L (136-145) mEq/L Potassium 3.8 4.0 (3.5-5.1) mEq/L Chloride 106 98 (98-107) mEq/L Carbon Dioxide 19 L 28 (23-29) mEq/L BUN 12 14 (6-20) mg/dL Creatinine 0.88 1.32 H (0.70-1.30) mg/dL Glucose 214 H 429 H (70-105) mg/dL Calcium 9.3 9.5 (8.6-10.3) mg/dL Cardiac Enzymes 09/01/17 Range/Units 21:00 Troponin I 0.12 H* (< 0.04) ng/mL Impressions Chest X-Ray 09/01/17 20:57 IMPRESSION: Question patchy airspace disease in the mid to lower lungs, raising the possibly of pneumonia and/or bronchopneumonia (especially given the bronchial wall thickening). However, that is not certain to, especially given the normal definition of the heart and diaphragmatic borders. D/ / Jorge Reyes MD / Jorge Reyes MD Interpreting Provider: Jorge Reyes MD Active Medications Acetaminophen (Tylenol) 650 mg PO Q6HR PRN PRN Reason: Mild Pain Stop: 03/03/18 22:28 Hydrocodone Bitart/Acetaminophen ([place] 5-325 Mg) 1 tab PO Q4HR PRN PRN Reason: Moderate Pain Stop: 03/03/18 22:28 Aspirin (Aspirin) 81 mg PO DAILY LETI Stop: 03/04/18 09:01 Last Admin: 09/02/17 07:38 Dose: 81 mg Dextrose/Water (Dextrose 50% (Syg)) 25 ml IVP AD PRN PRN Reason: Hypoglycemia Stop: 03/04/18 00:45 Diphenhydramine HCl (Benadryl) 25 mg PO HS PRN PRN Reason: Insomnia Stop: 03/03/18 22:29 Enoxaparin Sodium (Lovenox) 40 mg SQ 0600 LETI PRN Reason: Protocol Stop: 03/04/18 06:01 Last Admin: 09/02/17 06:14 Dose: 40 mg Glucagon (Glucagen) 1 mg IM ONCE PRN PRN Reason: Hypoglycemia Stop: 03/04/18 00:45 Glucose (Gluctose) 15 gm PO ONCE PRN PRN Reason: Hypoglycemia Stop: 03/04/18 00:45 Glucose (Gluctose) 30 gm PO ONCE PRN PRN Reason: Hypoglycemia Stop: 03/04/18 00:45 Hydralazine HCl (Hydralazine) 20 mg IVP Q6HR PRN PRN Reason: Hypertension Stop: 03/03/18 22:30 Last Admin: 09/02/17 09:05 Dose: 20 mg Sodium Chloride (0.9 % Sodium Chloride) 1,000 mls @ 100 mls/hr IVC .Q10H LETI Stop: 03/03/18 22:31 Last Admin: 09/02/17 07:40 Dose: Not Given Dextrose (Dextrose 5%) 1,000 mls @ 100 mls/hr IVC .Q10H PRN PRN Reason: HYPOGLYCEMIA Stop: 03/04/18 00:45 Insulin Human Lispro (Humalog) 0 units SQ HS [facility] PRN Reason: Protocol Stop: 03/04/18 00:46 Last Admin: 09/02/17 01:13 Dose: 4 units Insulin Human Lispro (Humalog) 0 units SQ TIDAC [facility] PRN Reason: Protocol Stop: 03/04/18 07:31 Last Admin: 09/02/17 07:39 Dose: 6 units Metoprolol Tartrate (Lopressor) 25 mg PO BID [facility] Stop: 03/04/18 03:31 Last Admin: 09/02/17 04:42 Dose: Not Given Morphine Sulfate (Morphine Sulfate) 4 mg IVP Q3H PRN PRN Reason: Severe Pain (7-10) Stop: 03/03/18 21:45 Nicotine (Nicoderm) 21 mg TD DAILY [facility] PRN Reason: Protocol Stop: 03/04/18 09:01 Last Admin: 09/02/17 07:41 Dose: Not Given Nitroglycerin (Nitroglycerin) 0.4 mg SL Q5MIN PRN PRN Reason: Chest Pain Stop: 03/03/18 21:39 Last Admin: 09/01/17 23:01 Dose: 0.4 mg Ondansetron HCl (Zofran) 4 mg IVP Q8HR PRN PRN Reason: Nausea And Vomiting Stop: 03/03/18 21:45 Rosuvastatin Calcium (Crestor) 40 mg PO HS [facility] Stop: 03/04/18 21:01 Ticagrelor (Brilinta) 90 mg PO BID [facility] Stop: 03/04/18 09:01 Last Admin: 09/02/17 07:39 Dose: 90 mg - Imaging and Cardiology Echo: pending Consult Discharge Plan - Plan Referrals: Dev Cordero [Primary Care Provider] -
[2017-09-02] MEDS ORDERED: *HR* Morphine 2 MG/ML SYRINGE IVP PRN (12:33)
[2017-09-02] MEDS ORDERED: *HR* HYDROcodone/Acet 5/325 mg TABLET PO PRN (12:33)
[2017-09-02] MEDS ORDERED: Nitroglycerin 0.4 MG TAB.SUBL SL PRN (12:33)
[2017-09-02] MEDS ORDERED: Ondansetron 4 MG/2 ML VIAL IVP PRN (12:33)
[2017-09-02] MEDS ORDERED: Acetaminophen 325 MG TABLET PO PRN (12:33)
[2017-09-02] MEDS ORDERED: Perflutren Lipid Microsphere 1.3 ML in 0.9 % Sodium Chloride 8.7 ML IVP ONE (14:22)
--- NOTE | 2017-09-02 18:28 | Electrocardiograph Report ---
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
--- NOTE | 2017-09-02 18:29 | Electrocardiograph Report ---
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
[2017-09-02] MEDS: *HR* Ticagrelor 90 MG TABLET PO SCH (19:26)
[2017-09-03] MEDS ORDERED: *HR* Enoxaparin 40 MG/0.4 ML SYRINGE SQ SCH (06:00)
[2017-09-03] MEDS: Insulin LISPRO 300 UNITS/3 ML VIAL SQ SCH (07:31)
[2017-09-03] MEDS: 0.9 % Sodium Chloride 1,000 ML IVC SCH (07:33)
[2017-09-03] MEDS: *HR* Ticagrelor 90 MG TABLET PO SCH (07:45)
[2017-09-03] MEDS ORDERED: Aspirin 81 MG TAB.CHEW PO SCH (09:00)
[2017-09-03] MEDS ORDERED: Nicotine 21 MG PATCH.TD24 TD SCH (09:00)
[2017-09-03 09:13] VITALS: BP 107/81
[2017-09-03 09:26] LABS: Basophils % 0.2 %; Eosinophils % 0.3 %; Hematocrit 49.2 % (37.5-50.1); Hemoglobin 16.4 g/dL (12.9-16.9); Immature Granulocytes % 0.4 % (0-4); Lymphocytes # 1.8 K/mcL (0.6-4.6); Lymphocytes % 15.7 %; Mean Corpuscular HGB Conc 33.3 g/dL (31.6-35.5); Mean Corpuscular Hemoglobin 31.4 pg (28.0-33.3); Mean Corpuscular Volume 94.3 fL (83.0-100.0); Mean Platelet Volume 9.4 fL (9.4-12.4); Monocytes % 8.3 %; Neutrophils # 8.7 K/mcL (1.6-8.9); Platelet Count 329 K/mcL (140-400); Red Blood Count 5.22 M/mcL (4.19-5.50); Red Cell Distribution Width 12.6 % (11.5-14.5); Segmented Neutrophils % 75.1 %
[2017-09-03 09:38] LABS: BUN/Creatinine Ratio 20 (6-26); Blood Urea Nitrogen 19 mg/dL (6-20); Calcium 9.3 mg/dL (8.6-10.3); Carbon Dioxide 27 mEq/L (23-29); Chloride 103 mEq/L (98-107); Glucose 342 mg/dL (70-105); Osmolality,Calculated 294 (280-300); Potassium 4.1 mEq/L (3.5-5.1); Sodium 134 mEq/L (136-145); eGFR For African Americans > 60 (> 60); eGFR For Non-African Americans > 60 (> 60)
--- NOTE | 2017-09-03 10:00 | Discharge Summary ---
Date of Encounter: 09/03/17 Time of Encounter: 09:55 - Discharge Diagnosis (1) ST elevation myocardial infarction (STEMI) Priority: Primary Status: Acute Qualifiers: Involved coronary artery: LAD coronary artery Qualified Code(s): I21.02 - ST elevation (STEMI) myocardial infarction involving left anterior descending coronary artery (2) CAD (coronary artery disease) Priority: Primary Status: Acute Qualifiers: Coronary Disease-Associated Artery/Lesion type: [place] artery [place] vs. transplanted heart: [place] heart Associated angina: angina presence unspecified Qualified Code(s): I25.10 - Atherosclerotic heart disease of [place] coronary artery without angina pectoris (3) Nicotine dependence Priority: Secondary Status: Acute Qualifiers: Nicotine product type: cigarettes Substance use status: uncomplicated Qualified Code(s): F17.210 - Nicotine dependence, cigarettes, uncomplicated (4) Essential hypertension Priority: Secondary Status: Acute (5) Ischemic cardiomyopathy Priority: Secondary Status: Acute (6) Type 2 diabetes mellitus Priority: Secondary Status: Acute Qualifiers: Diabetes mellitus complication status: with unspecified complications Diabetes mellitus intermission coordinator insulin use: without halfway use Qualified Code( s): E11.8 - Type 2 diabetes mellitus with unspecified complications - Discharge Medications Prescriptions: Nitroglycerin 0.4 mg SL Q5MIN PRN #30 tab.subl PRN Reason: Chest Pain Aspirin [Lo-Dose Aspirin EC] 81 mg PO DAILY #30 tablet. Lisinopril 2.5 mg PO DAILY #30 tablet metFORMIN [Glucophage] 500 mg PO BIDWM #60 tablet Metoprolol XL (24 HR) Succ [Toprol XL] 50 mg PO DAILY #30 tab.er.24h Nicotine Patch [Nicoderm] 21 mg TD DAILY #28 patch.td24 Rosuvastatin [Crestor] 40 mg PO HS #30 tablet Ticagrelor [Brilinta] 90 mg PO BID #60 tablet Home Medications: Aspirin [Lo-Dose Aspirin EC] 81 mg PO DAILY #30 tablet. 09/03/17 [Rx] Lisinopril 2.5 mg PO DAILY #30 tablet 09/03/17 [Rx] Metoprolol XL (24 HR) Succ [Toprol XL] 50 mg PO DAILY #30 tab.er.24h 09/03/17 [ Rx] Nicotine Patch [Nicoderm] 21 mg TD DAILY #28 patch.td24 09/03/17 [Rx] Nitroglycerin 0.4 mg SL Q5MIN PRN #30 tab.subl 09/03/17 [Rx] Rosuvastatin [Crestor] 40 mg PO HS #30 tablet 09/03/17 [Rx] Ticagrelor [Brilinta] 90 mg PO BID #60 tablet 09/03/17 [Rx] metFORMIN [Glucophage] 500 mg PO BIDWM #60 tablet 09/03/17 [Rx] Allergies/Adverse Reactions: 3 Allergy/AdvReac Type Severity Reaction Status Date / Time No Known Allergies Allergy Verified 09/01/17 20:55 Procedures/tests Complete & Pending: Procedures Performed prior 72 hours Category Date Time Status ECG 12 lead ECG [ECG] Routine Y 09/02/17 07:00 Ordered ECG 12 lead ECG [ECG] Stat Y 09/01/17 21:44 Completed EV echocardiogram w enhance Routine Y 09/01/17 21:44 Completed Date of admission: 09/01/17 21:18 Primary care physician: Gale Provider Consults: 09/01/17 21:44 Consult to Cardiac Rehabilitation-Phase1 [CONS] Routine Comment: Reason for Consult: AMI Call Completed: Yes Consult to Nurse Navigator [CONS] Routine Comment: Discharging clinician: Stephen Correa Anticipated date of discharge: 09/03/17 - Patient Status Disposition: Home, Self-Care Condition: Fair Overall status at discharge: patient is progressing back to baseline - Discharge Instructions Follow Up With: Dev Cordero [Primary Care Provider] - Additional Instructions: RISK FACTORS: STOP SMOKING: If you smoke, STOP. Smoking or tobacco use significantly increases your risk of heart disease because nicotine causes the arteries to narrow or constrict. It also causes fats to stick to the artery. Your chances of having a heart attack are greatly increased if you continue to smoke. For more information, call the education line for smoking cessation 0-050-[id number] EAT A LOW FAT/CHOLESTEROL/SODIUM DIET: This diet may help reduce your chances of having a heart attack. LIFTING: With affected extremity: Avoid bending, pushing off and lifting more than 2 pounds for 24 hours The following 48 hours, avoid lifting anything more than 5 pounds Avoid strenuous activity or repetitive motions ACTIVITY: You may walk or climb stairs as tolerated You can resume sexual activity as tolerated In general, you are encouraged to engage in a minimum of 30 minutes or more of moderate intensity physical activity, such as brisk walking, daily or at least 3 -4 times weekly BATHING Do not submerge the site into water (bath tub, hot tub, swimming pool, dishes) for 1 week. This can be a source for infection into the blood stream. You may shower after 24 hours SITE CARE: After 24 hours, you may remove the dressing and leave the site open to air. Keep the site clean and dry. Clean gently and pat dry. You can expect bruising and tenderness that gradually resolve within a week or two. Return to work as instructed per your physician Resume driving as instructed per physician Keep all scheduled follow up appointments Resume medications as instructed IMPORTANT: If prescribed a Platelet Aggregation Inhibitor such as, Plavix, Brilinta or Effient: Duration of therapy is minimum one year These medications are often used in combination with Aspirin in prevention of future heart attacks Never discontinue unless consult with your Assistant Facility Manager STROKE (CVA) Risk factors for a stroke are: Age, cigarette smoking, diabetes, excessive alcohol consumption, family history, high blood pressure, overweight, physical inactivity, prior stroke, heart attack, diagnosis of carotid artery stenosis or other artery disease. Warning signs: Sudden numbness or weakness of the face, arm or leg; especially on one side of the body, sudden confusion, trouble speaking or understanding, sudden trouble seeing in one or both eyes, sudden trouble walking, dizziness, loss of balance or coordination, sudden severe headache with no cause. Call 911 or go to the Emergency Room. CONGESTIVE HEART FAILURE: If you have been diagnosed with Congestive Heart Failure (CHF) and your symptoms return, make an appointment with your physician Weigh yourself daily. Notify your physician if you have a weight gain of two or more pounds in one day or five or more pounds in one week. If you experience any difficulty breathing, please call 911 BLEEDING: Although the risk of bleeding is minimal, it can happen. If you have any bleeding from the site, apply firm pressure above the puncture site for 10-15 minutes. If the bleeding does not stop, continue manual pressure and call 911 Contact [facility] ( ) if: You develop a fever greater than 101 degrees Fahrenheit Your site becomes reddened or has any drainage You have an increase in pain or burning at the site or if a large knot forms at the site. If you experience chest pain, shortness of breath, dizziness, or extreme tiredness, stop the activity and rest. Please notify [facility] office if you experience any of these symptoms and they are not relieved by rest please call 911! - Diet and Activity Activity: increase activity as tolerated Diet: low fat, low cholesterol, low salt diet - Hospital Course Hospital course: Mr. Mosley is a 57 year old male that presented as a STEMI on 09/01/17, underwent emergent LHC--severe two vessel coronary artery disease, EF 50%. Patient had successful PTCA/Drug-Eluting Stent placement in the distal RCA (critical stenosis with ongoing chest pain) and mid LAD (culprit for STEMI). Stent placed from a prior procedure in the Mid RCA has borderline instent restenosis. Started on DAPT (ASA and Brilinta)--uninterrupted x 1 year. Pt verbalizes understanding. Coupon card given. Continue BB, Statin, ACEi. Pt had mildly increased creatinine on admission 1.32, now normalized. Troponin 0.12. Echo resulted--LVEF 35%. Basal to mid anterior segments were not well visualized. Segmental left ventricular systolic dysfunction. Mild left ventricular diastolic dysfunction. There is no LV thrombus. Normal right ventricular structure and function. No significant valvular dysfunction. ICMP. Plan to recheck limited echo in 45 days to re-evaluate EF. Continue BB and ACEi. HGBA1C 10.5--new diagnosis of DM. Discussed with hospitalist, started pt on Metformin 500mg BID per hospitalist recommendation. Pt refused to stay for any further evaluation. Close follow-up with PCP regarding DM. Labs, vitals, and telemetry stable. Follow-up with cardiology in 1 week as outpt. Restrictions discussed. Right radial access site healing well. No bleeding, hematoma or ecchymosis noted. Smoking cessation counseling given and nicotine patches prescribed. Time spent discussing smoking cessation with patient: 3 to 10 minutes - Time Spent with Patient Total time spent providing and/or coordinating discharge services: Less than 30 minutes Physical Examination Vital Signs, Last 4 Hours Temp Pulse Resp BP Pulse Ox 09/03/17 09:00 86 18 107/81 97 09/03/17 08:00 97.7 F 09/03/17 07:00 68 20 122/86 96 Vital Signs Temp Pulse Resp BP Pulse Ox 09/03/17 09:00 86 18 107/81 97 09/03/17 08:00 97.7 F 09/03/17 07:00 68 20 122/86 96 09/03/17 05:24 84 20 09/03/17 03:56 72 18 121/92 98 09/03/17 03:28 97.9 F 09/03/17 03:00 94 09/03/17 00:00 71 18 105/83 98 09/02/17 23:08 97.9 F 09/02/17 23:00 85 09/02/17 22:00 99 16 98 09/02/17 21:00 89 09/02/17 19:10 98.2 F 09/02/17 19:00 97 16 116/94 98 09/02/17 18:00 88 16 119/84 97 09/02/17 17:00 96 18 144/108 96 09/02/17 16:00 88 16 141/101 98 09/02/17 15:44 98.1 F 09/02/17 15:00 88 18 132/89 96 09/02/17 14:00 79 16 131/81 98 09/02/17 13:00 88 18 128/75 96 09/02/17 12:00 88 126/93 09/02/17 11:36 97.8 F Intake and Output 09/02/17 09/03/17 09/03/17 23:59 07:59 15:59 Intake Total 960 / 960 240 / 240 Output Total 0 / 0 500 / 500 Balance 960 / 960 -500 / -500 240 / 240 Intake: Oral 960 / 960 240 / 240 Output: Urine 0 / 0 500 / 500 Other: Meal Dinner Breakfast Percent of Meal Consumed 100% 100% Weight 102.9 kg Blood Glucose* 205 162 Patient Weight 09/03/17 23:59 Weight 102.9 kg General: Conversant, No Apparent Distress HEENT: Atraumatic, Normocephaly, Mucus Membranes Moist Neck: No JVD, Normal carotid pulses Cardiac: Reg Rate and Rhythm, Normal S1 and S2, No Murmur Lungs: Normal Breath Sounds, No Wheeze, Rales, Rhonchi Neuro: Alert and responsive, No focal deficits noted Abdomen: Soft, Non-Tender Skin: Other (right femoral access site healing well. No bleeding, hematoma or ecchymosis noted.) Musculoskeletal: No Chest Wall Tenderness Extremities: No Clubbing, No Cyanosis, No Edema, Normal Pulses
== END 2017-09-03 11:25 | disposition home or self-care (01) | DRG 247 ==
LOC: EMEROO 20:46 → ICNU 21:18
PROVIDERS: ADMIT Emergency Medicine; ATTEND Internal Medicine Clinical Cardiac Electrophysiology

== ENCOUNTER 2020-08-10 14:25 | Inpatient (IN) ==
[2020-08-10] MEDS ORDERED: Naloxone 0.4 MG/ML INJ IVP PRN (18:03)
[2020-08-10] MEDS ORDERED: Nitroglycerin 0.4 MG TAB.SUBL SL PRN (18:12)
[2020-08-10] MEDS ORDERED: 0.9 % Sodium Chloride 250 ML IVC SCH (18:15)
[2020-08-10] MEDS ORDERED: *HR* Dextrose 50 % in Water (Vial) 50 ML VIAL IVP PRN (18:20)
[2020-08-10] MEDS ORDERED: D5% in Water 1,000 ML IVC PRN (18:20)
[2020-08-10] MEDS ORDERED: Dextrose Gel 15 GM/37.5 ML TUBE PO PRN ×2 (18:20)
[2020-08-10] MEDS: Dexamethasone 4 MG/ML VIAL IVP SCH (18:57)
[2020-08-10] MEDS: Nicotine 21 MG PATCH.TD24 TD SCH (18:58)
[2020-08-10] MEDS ORDERED: Ipratropium/Albuterol Neb 3 ML IH SCH (20:00)
[2020-08-10] MEDS: Pantoprazole 40 MG VIAL IVP SCH (20:35)
[2020-08-10] MEDS: Furosemide 40 MG/4 ML VIAL IVP SCH (20:36)
[2020-08-10] MEDS: *HR* Ticagrelor 90 MG TABLET PO SCH (20:37)
[2020-08-10] MEDS: Insulin DETEMIR 100 UNIT/ML X5UNITS SQ SCH ×2 (20:44→20:51)
[2020-08-10] MEDS ORDERED: Remdesivir 200 MG (Bolus) in 0.9 % Sodium Chloride 250 ML IVPB ONE (21:00)
[2020-08-11] MEDS: Ipratropium 1 PUFF INHALER IH SCH ×7 (00:23→23:15)
[2020-08-11 04:17] LABS: Basophils % 0.1 %; Hemoglobin 17.1 g/dL (12.9-16.9); Immature Granulocytes % 0.4 % (0-4); Lymphocytes # 0.5 K/mcL (0.6-4.6); Lymphocytes % 4.6 %; Mean Corpuscular HGB Conc 32.9 g/dL (31.6-35.5); Mean Corpuscular Hemoglobin 32.4 pg (28.0-33.3); Mean Corpuscular Volume 98.5 fL (83.0-100.0); Mean Platelet Volume 9.7 fL (9.4-12.4); Monocytes # 0.4 K/mcL (0.0-1.3); Monocytes % 3.6 %; Neutrophils # 9.9 K/mcL (1.6-8.9); Platelet Count 260 K/mcL (140-400); Red Blood Count 5.28 M/mcL (4.19-5.50); Red Cell Distribution Width 13.4 % (11.5-14.5); Segmented Neutrophils % 91.3 %; White Blood Count 10.9 K/mcL (4.3-11.1)
[2020-08-11 04:27] LABS: Prothrombin Time 11.5 Seconds (9.4-12.1)
[2020-08-11 04:36] LABS: Alanine Aminotransferase 21 Units/L (7-52); Albumin 4.3 g/dL (3.5-5.7); Albumin/Globulin Ratio 1.5 (1.1-2.2); Alkaline Phosphatase 65 Units/L (34-104); Aspartate Amino Transferase 17 Units/L (13-39); BUN/Creatinine Ratio 18 (6-26); Bilirubin,Total 0.5 mg/dL (0.3-1.0); Blood Urea Nitrogen 22 mg/dL (6-20); Calcium 9.4 mg/dL (8.6-10.3); Carbon Dioxide 26 mEq/L (23-29); Chloride 103 mEq/L (98-107); Globulin 2.8 g/dL (2.4-3.5); Glucose 182 mg/dL (70-105); Osmolality,Calculated 298 (280-300); Sodium 140 mEq/L (136-145); Total Protein 7.1 g/dL (6.4-8.9); eGFR For African Americans > 60 (> 60); eGFR For Non-African Americans 60 (> 60)
[2020-08-11] MEDS: Doxycycline 100 MG in 0.9 % Sodium Chloride Mini Bag 100 ML IVPB SCH ×2 (05:58→17:16)
[2020-08-11] MEDS: Insulin LISPRO 300 UNITS/3 ML VIAL SQ SCH ×5 (06:00→16:05)
[2020-08-11] MEDS ORDERED: *HR* Enoxaparin 100 MG/ML SYRINGE SQ SCH (06:00)
[2020-08-11] MEDS: *HR* Ticagrelor 90 MG TABLET PO SCH ×2 (07:49→20:17)
[2020-08-11] MEDS: Metoprolol XL (24 HR) Succ 50 MG TAB.ER.24H PO SCH (07:49)
[2020-08-11] MEDS: Aspirin Enteric Coated 81 MG Tablet PO SCH (07:49)
[2020-08-11] MEDS: Dexamethasone 4 MG/ML VIAL IVP SCH (07:50)
[2020-08-11] MEDS: Pantoprazole 40 MG VIAL IVP SCH (07:50)
[2020-08-11] MEDS: Furosemide 40 MG/4 ML VIAL IVP SCH ×2 (07:50→17:16)
[2020-08-11] MEDS: Nicotine 21 MG PATCH.TD24 TD SCH (10:38)
[2020-08-11 10:55] LABS: Hematocrit 50.1 % (37.5-50.1); Hemoglobin 16.9 g/dL (12.9-16.9); Mean Corpuscular HGB Conc 33.7 g/dL (31.6-35.5); Mean Corpuscular Hemoglobin 33.3 pg (28.0-33.3); Mean Corpuscular Volume 98.6 fL (83.0-100.0); Mean Platelet Volume 9.9 fL (9.4-12.4); Platelet Count 253 K/mcL (140-400); Red Blood Count 5.08 M/mcL (4.19-5.50); Red Cell Distribution Width 13.4 % (11.5-14.5); White Blood Count 13.2 K/mcL (4.3-11.1)
[2020-08-11 11:03] LABS: Heparin anti-factor XA UFH 0.52 IU/mL (0.30-0.70)
[2020-08-11 11:04] LABS: Prothrombin Time 12.1 Seconds (9.4-12.1)
[2020-08-11] MEDS ORDERED: *HR* Heparin 5,000 UNIT/ML VIAL IVP PRN ×2 (18:00)
[2020-08-11] MEDS: Heparin 25,000UNIT/250ML 1/2NS 25,000 UNIT/250 ML IV.SOLN IVC SCH (18:39)
[2020-08-11] MEDS: Insulin DETEMIR 100 UNIT/ML X5UNITS SQ SCH (20:18)
[2020-08-11] MEDS ORDERED: Remdesivir 100 MG (x 4 Days) in 0.9 % Sodium Chloride 250 ML IVPB SCH (21:00)
[2020-08-11] MEDS ORDERED: Insulin LISPRO 300 UNITS/3 ML VIAL SQ SCH (21:00)
[2020-08-12 01:26] LABS: Basophils % 0.1 %; Eosinophils % 0.1 %; Hematocrit 48.6 % (37.5-50.1); Hemoglobin 16.2 g/dL (12.9-16.9); Immature Granulocytes % 0.4 % (0-4); Lymphocytes # 0.6 K/mcL (0.6-4.6); Lymphocytes % 3.9 %; Mean Corpuscular HGB Conc 33.3 g/dL (31.6-35.5); Mean Corpuscular Hemoglobin 33.2 pg (28.0-33.3); Mean Corpuscular Volume 99.6 fL (83.0-100.0); Mean Platelet Volume 9.9 fL (9.4-12.4); Monocytes # 1.4 K/mcL (0.0-1.3); Monocytes % 8.5 %; Neutrophils # 13.9 K/mcL (1.6-8.9); Platelet Count 264 K/mcL (140-400); Red Blood Count 4.88 M/mcL (4.19-5.50); Red Cell Distribution Width 13.6 % (11.5-14.5)
[2020-08-12 01:45] LABS: Alanine Aminotransferase 19 Units/L (7-52); Albumin/Globulin Ratio 1.8 (1.1-2.2); Alkaline Phosphatase 54 Units/L (34-104); Aspartate Amino Transferase 14 Units/L (13-39); BUN/Creatinine Ratio 26 (6-26); Bilirubin,Total 0.5 mg/dL (0.3-1.0); Blood Urea Nitrogen 30 mg/dL (6-20); Calcium 8.7 mg/dL (8.6-10.3); Carbon Dioxide 25 mEq/L (23-29); Chloride 104 mEq/L (98-107); Globulin 2.2 g/dL (2.4-3.5); Glucose 149 mg/dL (70-105); Osmolality,Calculated 297 (280-300); Potassium 3.6 mEq/L (3.5-5.1); Sodium 139 mEq/L (136-145); Total Protein 6.2 g/dL (6.4-8.9); eGFR For African Americans > 60 (> 60); eGFR For Non-African Americans > 60 (> 60)
[2020-08-12] MEDS: Ipratropium 1 PUFF INHALER IH SCH ×5 (03:49→16:13)
[2020-08-12] MEDS: Doxycycline 100 MG in 0.9 % Sodium Chloride Mini Bag 100 ML IVPB SCH (05:26)
[2020-08-12] MEDS: Metoprolol XL (24 HR) Succ 50 MG TAB.ER.24H PO SCH (08:18)
[2020-08-12] MEDS: *HR* Ticagrelor 90 MG TABLET PO SCH (08:18)
[2020-08-12] MEDS: Insulin LISPRO 300 UNITS/3 ML VIAL SQ SCH ×2 (08:18→12:24)
[2020-08-12] MEDS: Aspirin Enteric Coated 81 MG Tablet PO SCH (08:18)
[2020-08-12] MEDS: Furosemide 40 MG/4 ML VIAL IVP SCH (08:20)
[2020-08-12] MEDS: Nicotine 21 MG PATCH.TD24 TD SCH (08:26)
[2020-08-12] MEDS: Pantoprazole 40 MG VIAL IVP SCH (08:26)
[2020-08-12 08:28] LABS: Heparin anti-factor XA UFH 0.76 IU/mL (0.30-0.70)
[2020-08-12] MEDS: Heparin 25,000UNIT/250ML 1/2NS 25,000 UNIT/250 ML IV.SOLN IVC SCH (08:57)
[2020-08-12] MEDS ORDERED: Dexamethasone Sodium Phos/PF 10 MG/ML VIAL IVP SCH (09:00)
[2020-08-12] MEDS ORDERED: Isovue-370 500 ML BOTTLE IVP ONE (10:16)
[2020-08-12 11:41] VITALS: BP 118/88
[2020-08-13] MEDS ORDERED: *HR* Enoxaparin 40 MG/0.4 ML SYRINGE SQ SCH (06:00)
== END 2020-08-12 16:24 | disposition home or self-care (01) | DRG 177 ==
LOC: SUATTDRO 17:23 → 2NENU 17:23
PROVIDERS: ADMIT Internal Medicine; ATTEND Internal Medicine

== ENCOUNTER 2021-05-07 15:24 | Inpatient (IN) ==
[2021-05-07] MEDS ORDERED: Ketorolac 15 MG/ML VIAL IVP ONE (15:51)
[2021-05-07] MEDS ORDERED: Ipratropium/Albuterol Neb 3 ML IH ONE (15:51)
[2021-05-07] MEDS ORDERED: 0.9 % Sodium Chloride 1,000 ML IVC ONE (15:51)
[2021-05-07] MEDS ORDERED: Vancomycin 1,750 MG/517.5 ML IV.SOLN IVPB ONE (16:00)
[2021-05-07] MEDS ORDERED: Piperacillin/Tazobactam 3.375 GM in Water for inj. (sterile) 20 ML IVP ONE (16:01)
[2021-05-07 16:08] LABS: Basophils % 0.4 %; Eosinophils % 0.3 %; Hematocrit 49.1 % (37.5-50.1); Hemoglobin 16.9 g/dL (12.9-16.9); Immature Granulocytes % 0.5 % (0-4); Lymphocytes # 1.7 K/mcL (0.6-4.6); Lymphocytes % 17.3 %; Mean Corpuscular HGB Conc 34.4 g/dL (31.6-35.5); Mean Corpuscular Hemoglobin 35.2 pg (28.0-33.3); Mean Corpuscular Volume 102.3 fL (83.0-100.0); Mean Platelet Volume 9.8 fL (9.4-12.4); Monocytes % 10.3 %; Neutrophils # 7.2 K/mcL (1.6-8.9); Platelet Count 280 K/mcL (140-400); Red Cell Distribution Width 14.7 % (11.5-14.5); Segmented Neutrophils % 71.2 %; White Blood Count 10.1 K/mcL (4.3-11.1)
[2021-05-07 16:11] LABS: VBG HCO3 24 mEq/L (21-27); VBG PCO2 43 mmHg (41-51); VBG PH 7.35 pH Units (7.32-7.42); VBG PO2 47 mmHg (25-50)
[2021-05-07] MEDS ORDERED: Furosemide 40 MG/4 ML VIAL IVP ONE (16:22)
[2021-05-07 16:50] LABS: Alanine Aminotransferase 28 Units/L (7-52); Albumin 4.6 g/dL (3.5-5.7); Albumin/Globulin Ratio 1.4 (1.1-2.2); Alkaline Phosphatase 81 Units/L (34-104); Aspartate Amino Transferase 34 Units/L (13-39); BUN/Creatinine Ratio 19 (6-26); Bilirubin,Direct 0.2 mg/dL (0.0-0.2); Bilirubin,Indirect 0.5 mg/dL (0.0-1.0); Bilirubin,Total 0.7 mg/dL (0.3-1.0); Blood Urea Nitrogen 22 mg/dL (6-20); Calcium 10.2 mg/dL (8.6-10.3); Carbon Dioxide 22 mEq/L (23-29); Chloride 107 mEq/L (98-107); Globulin 3.2 g/dL (2.4-3.5); Glucose 162 mg/dL (70-105); Lipase 15 Units/L (11-82); Osmolality,Calculated 301 (280-300); Potassium 4.3 mEq/L (3.5-5.1); Sodium 142 mEq/L (136-145); Total Protein 7.8 g/dL (6.4-8.9); eGFR For African Americans > 60 (> 60); eGFR For Non-African Americans > 60 (> 60)
[2021-05-07] MEDS ORDERED: Nitroglycerin 0.4 MG TAB.SUBL SL PRN (16:51)
[2021-05-07 17:05] LABS: Influenza A PCR Negative (Negative); Influenza B PCR Negative (Negative); Resp. Syncytial Virus PCR Negative (Negative)
[2021-05-07 17:23] LABS: SARS-CoV-2 by PCR (In House) Negative (Negative)
[2021-05-07] MEDS ORDERED: Acetaminophen 325 MG TABLET PO PRN (17:45)
[2021-05-07] MEDS ORDERED: Naloxone 0.4 MG/ML INJ IVP PRN (17:45)
[2021-05-07] MEDS ORDERED: Ondansetron 4 MG/2 ML VIAL IVP PRN (17:45)
[2021-05-07] MEDS ORDERED: Ipratropium/Albuterol Neb 3 ML IH PRN (17:52)
[2021-05-07] MEDS ORDERED: *HR* Heparin 5,000 UNIT/ML VIAL IVP ONE (18:00)
[2021-05-07] MEDS ORDERED: *HR* Heparin 5,000 UNIT/ML VIAL IVP PRN ×2 (18:00)
[2021-05-07] MEDS ORDERED: Heparin 25,000UNIT/250ML 1/2NS 25,000 UNIT/250 ML IV.SOLN IVC SCH (18:00)
[2021-05-07 19:17] LABS: Heparin anti-factor XA UFH 0.71 IU/mL (0.30-0.70)
[2021-05-07 19:18] LABS: INR 0.9; Prothrombin Time 10.6 Seconds (9.4-12.1)
[2021-05-07 19:21] LABS: Troponin I 0.29 ng/mL (< 0.04)
[2021-05-07] MEDS ORDERED: Perflutren Lipid Microsphere 1.3 ML in 0.9 % Sodium Chloride 8.7 ML IVP PRN (20:32)
[2021-05-07] MEDS ORDERED: Dextrose Gel 15 GM/37.5 ML TUBE PO PRN ×2 (20:40)
[2021-05-07] MEDS ORDERED: D5% in Water 1,000 ML IVC PRN (20:40)
[2021-05-07] MEDS ORDERED: *HR* Dextrose 50 % in Water (Vial) 50 ML VIAL IVP PRN (20:40)
[2021-05-07] MEDS: Azithromycin 500 MG in 0.9 % Sodium Chloride 250 ML IVPB SCH (21:13)
[2021-05-07] MEDS: Insulin LISPRO 300 UNITS/3 ML VIAL SUBQ SCH ×2 (21:26→21:31)
[2021-05-08 01:41] LABS: Hematocrit 45.9 % (37.5-50.1); Hemoglobin 15.9 g/dL (12.9-16.9); Immature Granulocytes % 0.3 % (0-4); Lymphocytes # 0.7 K/mcL (0.6-4.6); Lymphocytes % 8.8 %; Mean Corpuscular HGB Conc 34.6 g/dL (31.6-35.5); Mean Corpuscular Hemoglobin 35.3 pg (28.0-33.3); Mean Corpuscular Volume 101.8 fL (83.0-100.0); Mean Platelet Volume 9.7 fL (9.4-12.4); Monocytes # 0.2 K/mcL (0.0-1.3); Monocytes % 2.6 %; Neutrophils # 6.5 K/mcL (1.6-8.9); Platelet Count 226 K/mcL (140-400); Red Blood Count 4.51 M/mcL (4.19-5.50); Red Cell Distribution Width 14.8 % (11.5-14.5); Segmented Neutrophils % 88.3 %; White Blood Count 7.4 K/mcL (4.3-11.1)
[2021-05-08 01:55] LABS: BUN/Creatinine Ratio 24 (6-26); Blood Urea Nitrogen 24 mg/dL (6-20); Calcium 9.2 mg/dL (8.6-10.3); Carbon Dioxide 22 mEq/L (23-29); Chloride 108 mEq/L (98-107); Glucose 167 mg/dL (70-105); Magnesium 1.9 mg/dL (1.6-2.6); Osmolality,Calculated 300 (280-300); Potassium 4.4 mEq/L (3.5-5.1); Sodium 141 mEq/L (136-145); eGFR For African Americans > 60 (> 60); eGFR For Non-African Americans > 60 (> 60)
[2021-05-08] MEDS ORDERED: predniSONE 20 MG TABLET PO SCH (09:00)
[2021-05-08] MEDS: Furosemide 40 MG/4 ML VIAL IVP SCH (09:13)
[2021-05-08] MEDS: Insulin LISPRO 300 UNITS/3 ML VIAL SUBQ SCH ×4 (09:14→20:55)
[2021-05-08] MEDS: Azithromycin 500 MG in 0.9 % Sodium Chloride 250 ML IVPB SCH (18:12)
[2021-05-09 01:33] LABS: Basophils % 0.1 %; Hematocrit 45.5 % (37.5-50.1); Hemoglobin 15.5 g/dL (12.9-16.9); Immature Granulocytes % 0.4 % (0-4); Lymphocytes # 1.7 K/mcL (0.6-4.6); Lymphocytes % 14.5 %; Mean Corpuscular HGB Conc 34.1 g/dL (31.6-35.5); Mean Corpuscular Hemoglobin 35.1 pg (28.0-33.3); Mean Corpuscular Volume 103.2 fL (83.0-100.0); Mean Platelet Volume 9.8 fL (9.4-12.4); Monocytes % 9.1 %; Neutrophils # 8.7 K/mcL (1.6-8.9); Platelet Count 229 K/mcL (140-400); Red Blood Count 4.41 M/mcL (4.19-5.50); Red Cell Distribution Width 14.8 % (11.5-14.5); Segmented Neutrophils % 75.9 %
[2021-05-09 01:34] LABS: White Blood Count 11.4 K/mcL (4.3-11.1)
[2021-05-09 01:48] LABS: Estimated Average Glucose 163 mg/dl; Hemoglobin A1C 7.3 %
[2021-05-09 01:55] LABS: BUN/Creatinine Ratio 29 (6-26); Blood Urea Nitrogen 33 mg/dL (6-20); Calcium 9.1 mg/dL (8.6-10.3); Carbon Dioxide 24 mEq/L (23-29); Chloride 106 mEq/L (98-107); Glucose 140 mg/dL (70-105); Magnesium 2.1 mg/dL (1.6-2.6); Osmolality,Calculated 300 (280-300); Potassium 4.2 mEq/L (3.5-5.1); Sodium 140 mEq/L (136-145); eGFR For African Americans > 60 (> 60); eGFR For Non-African Americans > 60 (> 60)
[2021-05-09] MEDS ORDERED: *HR* Enoxaparin 40 MG/0.4 ML SYRINGE SQ SCH (07:00)
[2021-05-09] MEDS ORDERED: amLODIPine 5 MG TABLET PO SCH (09:00)
[2021-05-09] MEDS ORDERED: predniSONE 20 MG TABLET PO SCH (09:00)
[2021-05-09] MEDS: Insulin LISPRO 300 UNITS/3 ML VIAL SUBQ SCH ×4 (09:37→20:47)
[2021-05-09] MEDS: Furosemide 40 MG/4 ML VIAL IVP SCH (09:37)
[2021-05-09] MEDS: Aspirin Enteric Coated 81 MG Tablet PO SCH (09:37)
[2021-05-09] MEDS ORDERED: *HR* Heparin 5,000 UNIT/ML VIAL IVP ONE (12:17)
[2021-05-09] MEDS ORDERED: *HR* Heparin 5,000 UNIT/ML VIAL IVP PRN ×2 (12:17)
[2021-05-09] MEDS: Heparin 25,000UNIT/250ML 1/2NS 25,000 UNIT/250 ML IV.SOLN IVC SCH (13:38)
[2021-05-09] MEDS: Metoprolol XL (24 HR) Succ 25 MG TAB.ER.24H PO SCH (13:39)
[2021-05-09 13:57] LABS: Hematocrit 49.7 % (37.5-50.1); Hemoglobin 16.6 g/dL (12.9-16.9); Mean Corpuscular HGB Conc 33.4 g/dL (31.6-35.5); Mean Corpuscular Hemoglobin 34.3 pg (28.0-33.3); Mean Corpuscular Volume 102.7 fL (83.0-100.0); Mean Platelet Volume 9.8 fL (9.4-12.4); Platelet Count 244 K/mcL (140-400); Red Blood Count 4.84 M/mcL (4.19-5.50); Red Cell Distribution Width 14.8 % (11.5-14.5); White Blood Count 11.5 K/mcL (4.3-11.1)
[2021-05-09 14:02] LABS: Heparin anti-factor XA UFH 0.1 IU/mL (0.30-0.70)
[2021-05-09 14:03] LABS: INR 0.9; Prothrombin Time 10.8 Seconds (9.4-12.1)
[2021-05-09] MEDS: Azithromycin 500 MG in 0.9 % Sodium Chloride 250 ML IVPB SCH (17:42)
[2021-05-10 03:42] LABS: Basophils % 0.3 %; Eosinophils % 0.4 %; Hematocrit 45.8 % (37.5-50.1); Hemoglobin 15.4 g/dL (12.9-16.9); Immature Granulocytes % 0.3 % (0-4); Lymphocytes # 2.5 K/mcL (0.6-4.6); Lymphocytes % 26.8 %; Mean Corpuscular HGB Conc 33.6 g/dL (31.6-35.5); Mean Corpuscular Hemoglobin 34.9 pg (28.0-33.3); Mean Corpuscular Volume 103.9 fL (83.0-100.0); Mean Platelet Volume 10.3 fL (9.4-12.4); Monocytes # 0.9 K/mcL (0.0-1.3); Monocytes % 9.2 %; Neutrophils # 5.9 K/mcL (1.6-8.9); Platelet Count 222 K/mcL (140-400); Red Blood Count 4.41 M/mcL (4.19-5.50); Red Cell Distribution Width 14.6 % (11.5-14.5); White Blood Count 9.4 K/mcL (4.3-11.1)
[2021-05-10 04:05] LABS: BUN/Creatinine Ratio 28 (6-26); Blood Urea Nitrogen 32 mg/dL (6-20); Calcium 9.2 mg/dL (8.6-10.3); Carbon Dioxide 27 mEq/L (23-29); Chloride 104 mEq/L (98-107); Glucose 135 mg/dL (70-105); Magnesium 2.3 mg/dL (1.6-2.6); Osmolality,Calculated 299 (280-300); Potassium 3.8 mEq/L (3.5-5.1); Sodium 140 mEq/L (136-145); eGFR For African Americans > 60 (> 60); eGFR For Non-African Americans > 60 (> 60)
[2021-05-10] MEDS: Heparin 25,000UNIT/250ML 1/2NS 25,000 UNIT/250 ML IV.SOLN IVC SCH ×2 (04:14→22:47)
[2021-05-10] MEDS: Aspirin Enteric Coated 81 MG Tablet PO SCH (11:05)
[2021-05-10] MEDS: Insulin LISPRO 300 UNITS/3 ML VIAL SUBQ SCH ×4 (11:05→23:08)
[2021-05-10] MEDS: predniSONE 10 MG TABLET PO SCH (11:05)
[2021-05-10] MEDS: Spironolactone 25 MG TABLET PO SCH (11:05)
[2021-05-10] MEDS: Metoprolol XL (24 HR) Succ 25 MG TAB.ER.24H PO SCH (11:06)
[2021-05-10] MEDS: Furosemide 40 MG/4 ML VIAL IVP SCH (11:06)
[2021-05-10] MEDS: Azithromycin 500 MG in 0.9 % Sodium Chloride 250 ML IVPB SCH (18:27)
[2021-05-11 06:15] LABS: Basophils % 0.3 %; Eosinophils # 0.1 K/mcL (0.0-0.6); Eosinophils % 1.1 %; Hematocrit 45.4 % (37.5-50.1); Hemoglobin 15.6 g/dL (12.9-16.9); Immature Granulocytes % 0.5 % (0-4); Lymphocytes # 2.2 K/mcL (0.6-4.6); Lymphocytes % 24.1 %; Mean Corpuscular HGB Conc 34.4 g/dL (31.6-35.5); Mean Corpuscular Hemoglobin 35.6 pg (28.0-33.3); Mean Corpuscular Volume 103.7 fL (83.0-100.0); Mean Platelet Volume 10.3 fL (9.4-12.4); Monocytes # 0.8 K/mcL (0.0-1.3); Monocytes % 8.9 %; Neutrophils # 5.9 K/mcL (1.6-8.9); Platelet Count 218 K/mcL (140-400); Red Blood Count 4.38 M/mcL (4.19-5.50); Red Cell Distribution Width 14.2 % (11.5-14.5); Segmented Neutrophils % 65.1 %; White Blood Count 9.1 K/mcL (4.3-11.1)
[2021-05-11 06:32] LABS: BUN/Creatinine Ratio 28 (6-26); Blood Urea Nitrogen 30 mg/dL (6-20); Carbon Dioxide 28 mEq/L (23-29); Chloride 105 mEq/L (98-107); Glucose 152 mg/dL (70-105); Magnesium 2.4 mg/dL (1.6-2.6); Osmolality,Calculated 299 (280-300); Potassium 3.8 mEq/L (3.5-5.1); Sodium 140 mEq/L (136-145); eGFR For African Americans > 60 (> 60); eGFR For Non-African Americans > 60 (> 60)
[2021-05-11 10:10] LABS: Calcium 9.1 mg/dL (8.6-10.3)
[2021-05-11] MEDS: Furosemide 40 MG/4 ML VIAL IVP SCH (11:25)
[2021-05-11] MEDS: Insulin LISPRO 300 UNITS/3 ML VIAL SUBQ SCH ×4 (11:30→20:14)
[2021-05-11] MEDS: Aspirin Enteric Coated 81 MG Tablet PO SCH (11:31)
[2021-05-11] MEDS: Metoprolol XL (24 HR) Succ 25 MG TAB.ER.24H PO SCH (11:31)
[2021-05-11] MEDS: Spironolactone 25 MG TABLET PO SCH (11:31)
[2021-05-11] MEDS: predniSONE 10 MG TABLET PO SCH (11:31)
[2021-05-11] MEDS ORDERED: Furosemide 20 MG/2 ML VIAL IVP ONE (13:26)
[2021-05-11] MEDS: Heparin 25,000UNIT/250ML 1/2NS 25,000 UNIT/250 ML IV.SOLN IVC SCH (14:51)
[2021-05-11] MEDS: Azithromycin 500 MG in 0.9 % Sodium Chloride 250 ML IVPB SCH (18:50)
[2021-05-12 06:01] LABS: BUN/Creatinine Ratio 25 (6-26); Blood Urea Nitrogen 28 mg/dL (6-20); Calcium 9.6 mg/dL (8.6-10.3); Carbon Dioxide 26 mEq/L (23-29); Chloride 105 mEq/L (98-107); Glucose 153 mg/dL (70-105); Magnesium 2.2 mg/dL (1.6-2.6); Osmolality,Calculated 295 (280-300); Potassium 4.6 mEq/L (3.5-5.1); Sodium 138 mEq/L (136-145); eGFR For African Americans > 60 (> 60); eGFR For Non-African Americans > 60 (> 60)
[2021-05-12] MEDS: Metoprolol XL (24 HR) Succ 25 MG TAB.ER.24H PO SCH (07:35)
[2021-05-12] MEDS: Aspirin Enteric Coated 81 MG Tablet PO SCH (07:35)
[2021-05-12] MEDS: predniSONE 10 MG TABLET PO SCH (07:36)
[2021-05-12] MEDS: Spironolactone 25 MG TABLET PO SCH (07:36)
[2021-05-12] MEDS: Heparin 25,000UNIT/250ML 1/2NS 25,000 UNIT/250 ML IV.SOLN IVC SCH (07:43)
[2021-05-12] MEDS: Insulin LISPRO 300 UNITS/3 ML VIAL SUBQ SCH ×4 (07:46→21:43)
[2021-05-12 12:12] LABS: Basophils # 0.1 K/mcL (0.0-0.2); Basophils % 0.6 %; Eosinophils # 0.2 K/mcL (0.0-0.6); Eosinophils % 1.9 %; Hematocrit 48.3 % (37.5-50.1); Hemoglobin 15.9 g/dL (12.9-16.9); Immature Granulocytes % 0.6 % (0-4); Lymphocytes # 2.6 K/mcL (0.6-4.6); Lymphocytes % 29.3 %; Mean Corpuscular HGB Conc 32.9 g/dL (31.6-35.5); Mean Corpuscular Hemoglobin 34.5 pg (28.0-33.3); Mean Corpuscular Volume 104.8 fL (83.0-100.0); Mean Platelet Volume 11.3 fL (9.4-12.4); Monocytes # 0.9 K/mcL (0.0-1.3); Monocytes % 10.4 %; Neutrophils # 5.1 K/mcL (1.6-8.9); Platelet Count 221 K/mcL (140-400); Red Blood Count 4.61 M/mcL (4.19-5.50); Segmented Neutrophils % 57.2 %; White Blood Count 8.9 K/mcL (4.3-11.1)
[2021-05-12] MEDS ORDERED: 0.9 % Sodium Chloride 2,000 ML ONE (12:48)
[2021-05-12] MEDS ORDERED: Heparin 1,000 UNITS/500 mL 500 ML ONE (12:49)
[2021-05-12] MEDS ORDERED: *HR* Heparin 10,000 UNIT/10 ML VIAL ONE (12:49)
[2021-05-12] MEDS ORDERED: Nitroglycerin 1,000 MCG/5 ML VIAL IV ONE (12:49)
[2021-05-12] MEDS ORDERED: ISOVUE-370 200 ML INFUS..BTL ONE (12:49)
[2021-05-12] MEDS ORDERED: *HR* FentaNYL (PF) 100 MCG/2 ML VIAL ONE (12:52)
[2021-05-12] MEDS ORDERED: *HR* Midazolam HCl 2 MG/2 ML VIAL ONE (12:52)
[2021-05-12] MEDS ORDERED: Warfarin perPT PO PRN (18:00)
[2021-05-12] MEDS ORDERED: *HR* Warfarin 5 MG TABLET PO ONE (18:00)
[2021-05-12 22:47] VITALS: TEMP 97.6
[2021-05-13 02:54] VITALS: BP 148/93; PULSE 75; O2SAT 89
[2021-05-13] MEDS: Heparin 25,000UNIT/250ML 1/2NS 25,000 UNIT/250 ML IV.SOLN IVC SCH (05:05)
[2021-05-13 05:41] LABS: Basophils % 0.4 %; Eosinophils # 0.1 K/mcL (0.0-0.6); Eosinophils % 1.5 %; Hematocrit 47.3 % (37.5-50.1); Hemoglobin 15.9 g/dL (12.9-16.9); Immature Granulocytes % 0.5 % (0-4); Lymphocytes # 2.1 K/mcL (0.6-4.6); Lymphocytes % 26.5 %; Mean Corpuscular HGB Conc 33.6 g/dL (31.6-35.5); Mean Corpuscular Hemoglobin 34.7 pg (28.0-33.3); Mean Corpuscular Volume 103.3 fL (83.0-100.0); Mean Platelet Volume 10.2 fL (9.4-12.4); Monocytes # 0.9 K/mcL (0.0-1.3); Neutrophils # 4.8 K/mcL (1.6-8.9); Platelet Count 213 K/mcL (140-400); Red Blood Count 4.58 M/mcL (4.19-5.50); Red Cell Distribution Width 14.2 % (11.5-14.5); Segmented Neutrophils % 60.1 %; White Blood Count 7.9 K/mcL (4.3-11.1)
[2021-05-13 05:53] LABS: INR 0.9; Prothrombin Time 10.8 Seconds (9.4-12.1)
[2021-05-13 06:01] LABS: BUN/Creatinine Ratio 21 (6-26); Blood Urea Nitrogen 24 mg/dL (6-20); Calcium 9.5 mg/dL (8.6-10.3); Carbon Dioxide 27 mEq/L (23-29); Chloride 104 mEq/L (98-107); Glucose 140 mg/dL (70-105); Magnesium 2.2 mg/dL (1.6-2.6); Osmolality,Calculated 294 (280-300); Potassium 4.4 mEq/L (3.5-5.1); Sodium 139 mEq/L (136-145); eGFR For African Americans > 60 (> 60); eGFR For Non-African Americans > 60 (> 60)
[2021-05-13] MEDS ORDERED: *HR* Enoxaparin 120 MG/0.8 ML SYRINGE SQ ONE (11:00)
[2021-05-13] MEDS: Insulin LISPRO 300 UNITS/3 ML VIAL SUBQ SCH (11:46)
[2021-05-13] MEDS ORDERED: *HR* Warfarin 5 MG TABLET PO ONE (12:00)
[2021-05-13] MEDS: Aspirin Enteric Coated 81 MG Tablet PO SCH (12:41)
[2021-05-13] MEDS: Metoprolol XL (24 HR) Succ 25 MG TAB.ER.24H PO SCH (12:42)
[2021-05-13] MEDS: Spironolactone 25 MG TABLET PO SCH (12:42)
[2021-05-13] MEDS: predniSONE 10 MG TABLET PO SCH (12:42)
== END 2021-05-13 12:51 | disposition home or self-care (01) | DRG 280 ==
LOC: EMEROOARM 15:24 → CDU 15:24 → SUATTDRO 20:11 → CDU 20:29 → 3ANU 05-08 15:26
PROVIDERS: ADMIT Pharmacist; ATTEND Pharmacist